=== PATIENT | male | born 1960 | race Caucasian/White ===

== ENCOUNTER 2016-12-29 23:39 | Emergency (ER) | payer MEDICARE, MEDICAID ==
[2016-12-29 23:51] VITALS: BP 134/70
--- NOTE | 2016-12-30 01:34 | ED ---
Head Injury - HPI Summary HPI Summary: 56M presents laceration above left eye. bench assembler electrical found him on floor. She states that he often likes to roll on the floor so is unsure if fell or if just hit something will lying on floor. Patient is mental handicap and unable to answer questions. caregivers states he is not a blood thinners. - History Of Current Complaint Chief Complaint: EDLacSutureRecheck Stated Complaint: HEAD LAC ABOVE LEFT EYE Time Seen by Provider: 12/30/16 00:59 Pain Intensity: 0 - Allergies/Home Medications Allergies/Adverse Reactions: Allergies Allergy/AdvReac Type Severity Reaction Status Date / Time Ciprofloxacin [From Cipro] Allergy Unknown Verified 12/29/16 23:45 Reaction Details Citalopram [From Celexa] Allergy Unknown Verified 12/29/16 23:45 Reaction Details Venlafaxine [From Effexor] Allergy Unknown Verified 12/29/16 23:45 Reaction Details PMH/Surg Hx/FS Hx/Imm Hx Endocrine/Hematology History: Denies: Hx Diabetes, Hx Thyroid Disease Cardiovascular History: Denies: Hx Hypertension Respiratory History: Denies: Hx Asthma, Hx Chronic Obstructive Pulmonary Disease (COPD) GI History: Reports: Hx Hiatal Hernia, Hx Obstructive Bowel - per MD Diaz, Hx Ileostomy, Other GI Disorders - constipation with colostomy placement 2004. Prolapsed colostomy in Sep 2015 Denies: Hx Ulcer Musculoskeletal History: Reports: Hx Arthritis, Hx Osteoporosis Sensory History: Denies: Hx Contacts or Glasses, Hx Hearing Aid Opthamlomology History: Denies: Hx Contacts or Glasses Neurological History: Reports: Hx Seizures - last documented 2005 Psychiatric History: Reports: Other Psychiatric Issues/Disorders - profound MR - Surgical History Surgery Procedure, Year, and Place: COLOSTOMY 2004,, RIGHT FEMUR RODDING. left hand/wrist surgery 08/01/16 d/t fx Hx Anesthesia Reactions: No - UTO Infectious Disease History: Unable to Obtain/Confirm Infectious Disease History: Denies: Hx Hepatitis, Hx Human Immunodeficiency Virus (HIV), History Other Infectious Disease, Traveled Outside the [place] in Last 30 Days - Family History Known Family History: Positive: None - reviewed & noncontributory, Unknown - pt . is non_verbal Family History: R & N/C. Unknown - Social History Alcohol Use: None Hx Substance Use: No Substance Use Type: Reports: None Hx Tobacco Use: No Smoking Status (MU): Never Smoked Tobacco Have You Smoked in the Last Year: No Review of Systems Negative: Fever Positive: Other - laceration over left eye All Other Systems Reviewed And Are Negative: Yes Physical Exam Triage Information Reviewed: Yes Vital Signs On Initial Exam: Initial Vitals Temp Pulse Resp BP Pulse Ox 95.5 F 112 20 134/70 100 12/29/16 23:41 12/29/16 23:41 12/29/16 23:41 12/29/16 23:41 12/29/16 23:41 Vital Signs Reviewed: Yes Completion Of Physical Exam Limited Due To: Other - mentally handicap Appearance: Positive: Well-Appearing Skin: Positive: Warm, Dry, Other - 1/2 cm laceration on forehead above left eye Head/Face: Positive: Normal Head/Face Inspection Eyes: Positive: Normal, EOMI, GUERDA, Conjunctiva Clear Respiratory/Lung Sounds: Positive: Clear to Auscultation, Breath Sounds Present Cardiovascular: Positive: Normal, RRR Procedures - Laceration/Wound Repair 1 Location: face Description: Linear Length, Depth and Shape: 1/2 cm length Irrigated w/ Saline (ccs): 50 Closure: Skin Adhesive, SteriStrips Diagnostics - Vital Signs Vital Signs Temp Pulse Resp BP Pulse Ox 12/29/16 23:41 95.5 F 112 20 134/70 100 - Laboratory Lab Statement: Any lab studies that have been ordered have been reviewed, and results considered in the medical decision making process. - CT head CT Interpretation: No Acute Changes - limited by patient movement, grossly negative for hemorrhage, no mass CT Interpretation Completed By: Radiologist Head Injury Course/Dx Course Of Treatment: 56M presents with facial laceration. patient is mentally handicap and was discovered by caregiver. unsure if had head trauma or not. caregiver did not witness LOC and no vomiting. caregiver states that is not acting and different than normal. patient can not answer questions as baseline and does not follow commands at baseline. unable to completely full neuro exam due to patient not follow basic commands at baseline. on exam has small laceration to forehead that cleaned and placed glue and steri strip. got CT due to unclear if fell or not. CT normal. patient caregiver understands and agrees with plan - Diagnoses Differential Diagnosis/HQI/PQRI: Cerebral Contusion, Concussion Without LOC, Intracranial Bleed, Laceration Provider Diagnoses: Facial laceration Discharge - Discharge Plan Condition: Good Disposition: HOME Patient Education Materials: Skin Adhesive Care (ED) Referrals: Rodriguez Vargas MD [Primary Care Provider] - Additional Instructions: Keep steri strip on area for 5 days Glue will fall off on own Avoid scrubbing area Follow up with primary if notice any change in behavior for potential head injury Return to ED if develop any signs of infection or any new or worsening symptoms
--- NOTE | 2016-12-30 07:32 | RAD ---
INDICATION: Head injury on blood thinners. COMPARISON: Comparison is made with a prior CT of the brain from January 22, 2016. TECHNIQUE: Contiguous axial sections of the brain were obtained from the skull base to the vertex without contrast. The exam is limited due to motion artifact on both sets of images. FINDINGS: The ventricles, cisterns and sulci are within normal limits. No significant focal abnormality or mass effect is seen. There is no evidence for hemorrhage. The study is limited. No fracture is seen. The visualized portion of the paranasal sinuses and mastoid air cells appear clear. IMPRESSION: LIMITED STUDY, NO GROSS EVIDENCE FOR MASS EFFECT OR HEMORRHAGE.
== END 2016-12-30 02:18 | disposition home or self-care (01) ==
LOC: ED 23:39
DX: S01.112A Laceration without foreign body of left eyelid and periocular area, initial encounter (principal); X58.XXXA Exposure to other specified factors, initial encounter; Y93.9 Activity, unspecified; Y92.9 Unspecified place or not applicable; F79 Unspecified intellectual disabilities
CPT/HCPCS: 70450; 99282

== ENCOUNTER 2017-04-12 11:26 | Emergency (ER) | payer MEDICARE, MEDICAID ==
[2017-04-12 13:15] VITALS: BP 115/83
--- NOTE | 2017-04-12 14:36 | RAD ---
Indication: Read firm lump noticed today near bandage for colostomy. Comparison: January 06, 2016 CT. Technique: Ultrasound in the region of the palpable lump as directed by the patient at the time of the exam. REPORT AND IMPRESSION: Corresponding with the region of palpable lump adjacent to the colostomy site there is a moderately well-circumscribed 1.7 x 0.8 x 2.1 cm heterogeneous collection with posterior acoustic enhancement and some hyperechoic foci. Negative for compelling intrinsic vascularity on Doppler. While nonspecific the differential includes a parastomal herniated bowel loop as well as an extra enteric loculated fluid collection. Overlying nonspecific skin thickening/edema. Correlate with clinical data and consider CT with oral and IV contrast for further assessment as deemed appropriate.
--- NOTE | 2017-04-12 16:07 | UC ---
Aisha Fontana Rebecca, scribed for Pam Yates MD on 04/12/17 at 1349 . Skin Complaint HPI - HPI Summary HPI Summary: Pt is a 57 y/o M accompanied by a tailings man from the [facility] who presents over concerns of a "bulge" and erythema next to his colostomy bag. Pt is nonverbal MR. Concern pt has cellulitis. Cyanide Pot Tender reports sx were just noticed today and have been constant since onset. Pt nonverbal but no apparent aggravating and alleviating factors. Denies fever, chills. Cyanide Pot Tender reports he cannot indicate pain. Confirms pt has been eating and drinking well today. No PMHx HIV, Hepatitis, Lupus, DM, MRSA or cellulitis. PSHx colostomy, femur rodding and movement of the colostomy bag due to SBO 6 months ago. Cyanide Pot Tender confirms that nobody in the house has MRSA. PCP is Dr. Vargas - leodan seen last week. Pt is nonverbal secondary to MR, all Hx obtained from tailings man. Patient's medications reviewed this visit. - History of Current Complaint Chief Complaint: UCSkin Time Seen by Provider: 04/12/17 13:42 Stated Complaint: RED BULGING BUMP NEAR COLOSTOMY BAG Hx Obtained From: Family/Cyanide Pot Tender - Cyanide Pot Tender from [facility] Hx From Patient Unobtainable Due To: Other - Nonverbal status Onset/Duration: Lasting Days - Today, Still Present Timing: Constant Pain Scale Used: Cannot indicate pain Location: Other - Lump next to his colostomy bag Character: Redness, Raised Aggravating: Nothing Alleviating: Nothing Associated Signs & Symptoms: Positive: Negative - Allergy/Home Medications Allergies/Adverse Reactions: Allergies Allergy/AdvReac Type Severity Reaction Status Date / Time Ciprofloxacin [From Cipro] Allergy Unknown Verified 04/12/17 13:03 Reaction Details Citalopram [From Celexa] Allergy Unknown Verified 04/12/17 13:03 Reaction Details Venlafaxine [From Effexor] Allergy Unknown Verified 04/12/17 13:03 Reaction Details Review of Systems Constitutional: Negative Skin: Other - "bulge" and erythema next to colostomy bag Eyes: Negative ENT: Negative Respiratory: Negative Cardiovascular: Negative Gastrointestinal: Negative Genitourinary: Negative Motor: Negative Neurovascular: Negative Musculoskeletal: Negative Neurological: Negative Psychological: Negative All Other Systems Reviewed And Are Negative: Yes PMH/Surg Hx/FS Hx/Imm Hx - Additional Past Medical History Additional PMH: Arthritis, osteoporosis, MR Previously Healthy: No GI/ History: Other Other GI/ History: Small bowel obstruction Neurological History: Seizures Other History Of: Negative For: HIV - Surgical History Surgical History: Yes Surgery Procedure, Year, and Place: COLOSTOMY 2004,, RIGHT FEMUR RODDING. left hand/wrist surgery 08/01/16 d/t fx - Family History Known Family History: Positive: Unknown - Pt is nonverbal - Social History Lives: Assisted Living - [facility] Alcohol Use: None Substance Use Type: None Smoking Status (MU): Never Smoked Tobacco Have You Smoked in the Last Year: No - Immunization History Most Recent Influenza Vaccination: unknown Most Recent Tetanus Shot: unknown Physical Exam Triage Information Reviewed: Yes Completion Of Physical Exam Limited Due To: Other - non verbal Appearance: Well-Appearing, No Pain Distress, Well-Nourished Vital Signs: Initial Vital Signs Temp 98.7 F 04/12/17 13:05 Pulse 71 04/12/17 13:05 Resp 16 04/12/17 13:05 BP 115/83 04/12/17 13:05 Pulse Ox 96 04/12/17 13:05 Vital Signs Reviewed: Yes Eye Exam: Normal ENT: Positive: Hearing grossly normal, Pharynx normal Dental Exam: Normal Neck: Positive: Supple, No Lymphadenopathy Respiratory: Positive: Chest non-tender, Lungs clear, Normal breath sounds, No respiratory distress Cardiovascular Exam: Normal Cardiovascular: Positive: RRR, No Murmur Abdomen Description: Positive: Nontender, No Organomegaly, Soft, Other: - PT with mildine healed incision from previous colostomy. pt with colostomy left, midline abdomen pt with active colostomy. + brown stool in ostomy bag Pt with are of erythem 2x3 cm proximal, medial edge of ostomy dressing. Deep to this pt with palable, firm are approx 3x3 cm- no audible bowel sounds no fluctuance Musculoskeletal: Positive: Other: - PT ambulatory about room without difficulty or limitations Neurological: Positive: Alert Psychological Exam: Normal Psychological: Positive: Other: - baseline per caregiver - no aparent distress Skin: Positive: Other - see GI Re-Evaluation - Re-Evaluation First Eval Re-Evaluation Time: 14:27 Change: Unchanged Comment: Discussed US findings with the pt and his tailings man. The tailings man is trying to figure out who can give consent to treat the pt. Second Eval Re-Evaluation Time: 14:36 Change: Unchanged Comment: Further discussed whether consent could be given. radiology result recommend CT - d/w caregiver - will transfer to ED by private vehicle Course/Dx - Course Course Of Treatment: PT with area of erythema and palpable mass at edge of colostomy bandage - differential includes cellulitis, abscess, bowel. Pt without discomfort. Will check ultrasound. IF abscess, I+D. caregiver in agreement with plan - Diagnoses Provider Diagnoses: cellulitis. abscess vs hernia Discharge - Discharge Plan Condition: Stable Disposition: TRANS HIGHER LVL OF CARE FAC Referrals: Rodriguez Vargas MD [Primary Care Provider] - Additional Instructions: It is unclear if the wound is infection or bowel. Go directly to the emergency department for additional testing - they are expecting you The documentation as recorded by the Aisha mendez Rebecca accurately reflects the service I personally performed and the decisions made by me, Pam Yates MD.
== END 2017-04-12 14:57 | disposition short-term general hospital (02) ==
LOC: UCEAST 11:26
DX: L03.311 Cellulitis of abdominal wall (principal); Z93.3 Colostomy status; F79 Unspecified intellectual disabilities
CPT/HCPCS: 76705; 99212; G0463

== ENCOUNTER 2017-04-12 15:59 | Emergency (ER) | payer MEDICARE, MEDICAID ==
[2017-04-12] MEDS ORDERED: NS 0.9% 1000 ML* 1,000 ML IV ONE (19:36)
[2017-04-12 20:13] LABS: Hematocrit 41 % (42-52); Hemoglobin 13.2 g/dl (14.0-18.0); Mean Corpuscular HGB Conc 32 g/dl (31-36); Mean Corpuscular Hemoglobin 29 pg (27-31); Mean Corpuscular Volume 89 fL (80-94); Mean Platelet Volume 8 um3 (7.4-10.4); Red Blood Count 4.59 10^6/ul (4.0-5.4); Red Cell Distribution Width 13 % (10.5-15); White Blood Count 7.4 10^3/ul (3.5-10.8)
[2017-04-12 20:31] LABS: BUN/Creatinine Ratio 29.5 (8-20); Calcium 9.4 mg/dL (8.6-10.3); EGFR African American 256.4 (>60); EGFR Non-African American 199.3 (>60); Globulin 3.4 g/dL (2-4); Potassium 3.7 mmol/L (3.5-5.0); Total Bilirubin 0.4 mg/dL (0.2-1.0); Total Protein 7.4 g/dL (6.4-8.9)
--- NOTE | 2017-04-12 20:43 | ED ---
Tamara Fontana Salem, scribed for Dylan Ríos MD on 04/12/17 at 1921 . GI/ HPI - HPI Summary HPI Summary: Patient is a 57 y/o M who presents to the ED from Urgent Care with erythema to the right of colostomy bag. Per caregiver, morning staff found the complaint and took him to where he had an ultrasound taken and sent here for further evaluation. She also reports a hard raised area above healed incision. Pt resides at the [facility]. - History of Current Complaint Chief Complaint: EDGeneral Time Seen by Provider: 04/12/17 19:21 Stated Complaint: SWELLING ON ABD Hx Obtained From: Family/Shovel Log Loader Operator Onset/Duration: Started Hours Ago, Still Present Timing: Lasting Hours Severity: Moderate Current Severity: Moderate Pain Intensity: 0 Associated Signs and Symptoms: Positive: Negative Aggravating Factor(s): Nothing Alleviating Factor(s): Nothing - Additional Pertinent History Primary Care Physician: MARLEE - Allergy/Home Medications Allergies/Adverse Reactions: Allergies Allergy/AdvReac Type Severity Reaction Status Date / Time Ciprofloxacin [From Cipro] Allergy Unknown Verified 04/12/17 13:03 Reaction Details Citalopram [From Celexa] Allergy Unknown Verified 04/12/17 13:03 Reaction Details Venlafaxine [From Effexor] Allergy Unknown Verified 04/12/17 13:03 Reaction Details PMH/Surg Hx/FS Hx/Imm Hx Endocrine/Hematology History: Denies: Hx Diabetes, Hx Thyroid Disease Cardiovascular History: Denies: Hx Hypertension Respiratory History: Denies: Hx Asthma, Hx Chronic Obstructive Pulmonary Disease (COPD) GI History: Reports: Hx Hiatal Hernia, Hx Obstructive Bowel - per MD Diaz, Hx Ileostomy, Other GI Disorders - constipation with colostomy placement 2004. Prolapsed colostomy in Sep 2015 Denies: Hx Ulcer Musculoskeletal History: Reports: Hx Arthritis, Hx Osteoporosis Sensory History: Denies: Hx Contacts or Glasses, Hx Hearing Aid Opthamlomology History: Denies: Hx Contacts or Glasses Neurological History: Reports: Hx Seizures - last documented 2005 Psychiatric History: Reports: Other Psychiatric Issues/Disorders - profound MR - Surgical History Surgery Procedure, Year, and Place: COLOSTOMY 2004,, RIGHT FEMUR RODDING. left hand/wrist surgery 08/01/16 d/t fx Hx Anesthesia Reactions: No - UTO Infectious Disease History: No Infectious Disease History: Denies: Hx Hepatitis, Hx Human Immunodeficiency Virus (HIV), History Other Infectious Disease, Traveled Outside the [place] in Last 30 Days - Family History Known Family History: Positive: None - reviewed & noncontributory, Unknown - pt . is non_verbal Family History: R & N/C. Unknown - Social History Alcohol Use: None Hx Substance Use: No Substance Use Type: Reports: None Hx Tobacco Use: No Smoking Status (MU): Never Smoked Tobacco Have You Smoked in the Last Year: No Review of Systems Negative: Fever Positive: Other - Erythema to the right of colostomy bag, above scar. Hard, raised area. All Other Systems Reviewed And Are Negative: Yes Physical Exam Triage Information Reviewed: Yes Vital Signs On Initial Exam: Initial Vitals Temp Pulse Resp BP Pulse Ox 97.0 F 89 20 139/85 99 04/12/17 16:11 04/12/17 16:11 04/12/17 16:11 04/12/17 16:11 04/12/17 16:11 Vital Signs Reviewed: Yes Completion Of Physical Exam Limited Due To: Altered Mental Status Appearance: Positive: Well-Appearing - contracted Skin: Positive: Warm Head/Face: Positive: Normal Head/Face Inspection Eyes: Positive: GUERDA ENT: Positive: Hearing grossly normal Neck: Positive: Supple Respiratory/Lung Sounds: Positive: Breath Sounds Present Cardiovascular: Positive: RRR Abdomen Description: Positive: Soft, Other: - colostomy bag draining, soft Bowel Sounds: Positive: Present Diagnostics - Vital Signs Vital Signs Temp Pulse Resp BP Pulse Ox 04/12/17 17:17 97.4 F 84 20 124/88 99 04/12/17 16:11 97.0 F 89 20 139/85 99 - Laboratory Lab Results: Lab Results 04/12/17 04/12/17 04/12/17 Range/Units 20:05 20:05 20:05 WBC 7.4 (3.5-10.8) 10^3/ul RBC 4.59 (4.0-5.4) 10^6/ul Hgb 13.2 L (14.0-18.0) g/dl Hct 41 L (42-52) % MCV 89 (80-94) fL MCH 29 (27-31) pg MCHC 32 (31-36) g/dl RDW 13 (10.5-15) % Plt Count 271 (150-450) 10^3/ul MPV 8 (7.4-10.4) um3 Neut % (Auto) 71.2 (38-83) % Lymph % (Auto) 17.4 L (25-47) % [place] % (Auto) 7.6 (1-9) % Eos % (Auto) 2.1 (0-6) % Baso % (Auto) 1.7 (0-2) % Absolute Neuts (auto) 5.2 (1.5-7.7) 10^3/ul Absolute Lymphs (auto) 1.3 (1.0-4.8) 10^3/ul Absolute Monos (auto) 0.6 (0-0.8) 10^3/ul Absolute Eos (auto) 0.2 (0-0.6) 10^3/ul Absolute Basos (auto) 0.1 (0-0.2) 10^3/ul Absolute Nucleated RBC 0 10^3/ul Nucleated RBC % 0 Sodium 136 (133-145) mmol/L Potassium 3.7 (3.5-5.0) mmol/L Chloride 104 (101-111) mmol/L Carbon Dioxide 26 (22-32) mmol/L Anion Gap 6 (2-11) mmol/L BUN 13 (6-24) mg/dL Creatinine 0.44 L (0.67-1.17) mg/dL Est GFR ( Amer) 256.4 (>60) Est GFR (Non-Af Amer) 199.3 (>60) BUN/Creatinine Ratio 29.5 H (8-20) Glucose 82 (70-100) mg/dL Lactic Acid 0.7 (0.5-2.0) mmol/L Calcium 9.4 (8.6-10.3) mg/dL Total Bilirubin 0.40 (0.2-1.0) mg/dL AST 24 (13-39) U/L ALT 22 (7-52) U/L Alkaline Phosphatase 128 H (34-104) U/L Total Protein 7.4 (6.4-8.9) g/dL Albumin 4.0 (3.2-5.2) g/dL Globulin 3.4 (2-4) g/dL Albumin/Globulin Ratio 1.2 (1-3) Result Diagrams: 04/12/17 20:05 04/12/17 20:05 Lab Statement: Any lab studies that have been ordered have been reviewed, and results considered in the medical decision making process. - CT Abd/pelvis CT Interpretation Completed By: Radiologist - IMPRESSION: 1. This exam is highly limited due to streak artifact caused by the hyperdense oral contrast material, patient motion artifact and the fact of the patient's arms are at his sides during image acquisition. 2. Similar to the previous CT examination there are dilated loops of air-filled small bowel predominantly in the left hemiabdomen. A transition point cannot be discerned. 3. There are no CT apparent acute abnormalities of the left abdominal ostomy site. 4. There are additional chronic, degenerative and iatrogenic findings described in body the report. Re-Evaluation - Re-Evaluation First Eval Comment: results d/w staff GIGU Course/Dx - Course Course Of Treatment: 57 y/o M presents from Urgent Care with erythema to the right of colostomy bag. Per caregiver, morning staff reports a hard raised area above healed incision, as well. Pt received fluids in ED course. CT abd/pelvis shows, per radiology, IMPRESSION: 1. This exam is highly limited due to streak artifact caused by the hyperdense oral. contrast material, patient motion artifact and the fact of the patient's arms are at his. sides during image acquisition. 2. Similar to the previous CT examination there are dilated loops of air-filled small. bowel predominantly in the left hemiabdomen. A transition point cannot be discerned. 3. There are no CT apparent acute abnormalities of the left abdominal ostomy site. 4. There are additional chronic, degenerative and iatrogenic findings described in body. the report. Pt will be DC'd. - Diagnoses Provider Diagnoses: Abdominal pain Discharge - Discharge Plan Condition: Stable Disposition: HOME Patient Education Materials: Abdominal Pain (ED) Referrals: Rodriguez Vargas MD [Primary Care Provider] - Additional Instructions: Please follow up with your primary care provider. The documentation as recorded by the Tamara mendez Salem accurately reflects the service I personally performed and the decisions made by me, Dylan Ríos MD.
[2017-04-12] MEDS ORDERED: Iohexol 300* (CONTRAST) 10 ML SDV IV ONE (21:09)
--- NOTE | 2017-04-12 22:04 | RAD ---
CLINICAL HISTORY: Erythema overlying the site of the colostomy appliance COMPARISON: Similar CT examination dated January 06, 2016 TECHNIQUE: Contrast enhanced CT examination of the abdomen and pelvis from the lung bases through the initial tuberosities. The patient received 85 mL Omnipaque 300 intravenously prior to imaging.The patient received oral contrast as well prior to imaging. FINDINGS: This CT examination is limited by streak artifact caused by the ingested contrast and by patient motion artifact. VISUALIZED LUNG BASES: The visualized lung bases are grossly clear. There is no pleural effusion. ABDOMEN AND PELVIS: The liver, pancreas and adrenal glands are grossly normal in appearance. The spleen is mildly enlarged measuring 12.6 cm in greatest axial dimension. The gallbladder is normal. The kidneys are normal in appearance without focal mass, calcification or signs of hydronephrosis. Neural contrast has only progressed as far as the proximal small bowel. There is air-filled dilatation of the small bowel in the left upper quadrant measuring up to 3.4 cm in diameter. This appearance is similar to the previous CT examination. The ostomy appears to be intact. There is no gross retroperitoneal or mesenteric lymphadenopathy. The pelvic viscera is normal in appearance. The abdominal aorta and iliac arteries are normal in course and diameter. Multilevel degenerative changes include loss of intervertebral disc height and marginal osteophyte formation. There is straightening of the normal thoracic kyphosis. Appearance is similar to the previous CT examination.There are no sinister bone lesions. IMPRESSION: 1. This exam is highly limited due to streak artifact caused by the hyperdense oral contrast material, patient motion artifact and the fact of the patient's arms are at his sides during image acquisition. 2. Similar to the previous CT examination there are dilated loops of air-filled small bowel predominantly in the left hemiabdomen. A transition point cannot be discerned. 3. There are no CT apparent acute abnormalities of the left abdominal ostomy site. 4. There are additional chronic, degenerative and iatrogenic findings described in body the report.
[2017-04-12 22:33] VITALS: BP 130/75
== END 2017-04-12 22:31 | disposition home or self-care (01) ==
LOC: ED 15:59
DX: R10.9 Unspecified abdominal pain (principal); L53.9 Erythematous condition, unspecified; Z93.3 Colostomy status; R56.9 Unspecified convulsions; Z88.1 Allergy status to other antibiotic agents
CPT/HCPCS: 36415; 74177; 80053; 83605; 85025; 96360; 96361; 99283; Q9967

== ENCOUNTER 2017-06-24 12:05 | Emergency (ER) | payer MEDICARE, MEDICAID | END 2017-06-24 13:49 | disposition left against medical advice (07) | LOC: UCCORT 12:05 | DX: M79.644 Pain in right finger(s) (principal); Z53.21 Procedure and treatment not carried out due to patient leaving prior to being seen by health care provider ==